=== PATIENT | male | born 1980 | race Caucasian/White ===

== ENCOUNTER 2022-12-04 11:42 | Outpatient (OUT) | payer BC, SELFPAY ==
[2022-12-04 11:59] LABS: Basophils Absolute Auto 0.1 10^3/uL (0.0-0.1); Eosinophils Absolute Auto 0.2 10^3/uL (0.0-0.7); Eosinophils Percent Auto 3.7 % (0.9-7.0); Hematocrit 40.4 % (42.0-54.0); Hemoglobin 13.6 g/dL (14.0-18.0); Immature Granulocytes Abs Auto 0.02 10^3/uL (0.00-0.03); Immature Granulocytes Pct Auto 0.4 % (0.0-0.5); Lymphocytes Absolute Auto 2.5 10^3/uL (1.2-3.8); Lymphocytes Percent Auto 48.6 % (20.5-60.0); Mean Corpuscular HGB Conc 33.7 g/dL (29.9-35.2); Mean Corpuscular Hemoglobin 29.8 pg (25.9-34.0); Mean Corpuscular Volume 88.4 fL (80.0-94.0); Mean Platelet Volume 9.6 fL (9.5-13.5); Monocytes Absolute Auto 0.4 10^3/uL (0.3-0.8); Monocytes Percent Auto 7.5 % (1.7-12.0); Neutrophils Percent Auto 38.8 % (43.0-75.0); Platelet Count 261 10^3/uL (150-450); Red Blood Count 4.57 10^6/uL (4.70-6.10); Red Cell Distribution Width 11.9 % (11.0-15.0); White Blood Count 5.2 10^3/uL (4.0-11.0)
[2022-12-04 12:55] LABS: Alanine Aminotransferase 29 U/L (16-63); Albumin Globulin Ratio 1.2; Alkaline Phosphatase 46 U/L (46-116); Anion Gap 13.1; Aspartate Amino Transferase 12 U/L (15-37); BUN Creatinine Ratio 14.6; Bilirubin Total 0.2 mg/dL (0.2-1.0); Calcium 9.3 mg/dL (8.5-10.1); Carbon Dioxide 28.1 mmol/L (21.0-32.0); Chloride 103 mmol/L (98-107); Chol HDL Ratio 3.8; Cholesterol 168 mg/dL (<=200); Estimated GFR (African America >60 (>=60); Estimated GFR (Non-African Ame >60 (>=60); Globulin 3.3 g/dL; Glucose 90 mg/dL (74-106); HDL Cholesterol 44 mg/dL (40-60); LDL Cholesterol Calculated 99.2 mg/dL; Potassium 4.2 mmol/L (3.5-5.1); Sodium 140 mmol/L (136-145); Total Protein 7.3 g/dL (6.4-8.2); Triglycerides 124 mg/dL (<=150); VLDL CHOLESTEROL 24.8 mg/dL
== END 2022-12-04 11:43 | disposition home or self-care (01) ==
PROVIDERS: PCP Family Medicine; Visit Provider Family Medicine
DX: Z00.00 Encounter for general adult medical examination without abnormal findings (principal); E78.1 Pure hyperglyceridemia
CPT/HCPCS: 36415; 80053; 80061; 85025

== ENCOUNTER 2023-02-22 12:08 | Outpatient (OUT) | payer BC, SELFPAY ==
[2023-02-22 12:28] LABS: Basophils Percent Auto 0.7 % (0.2-2.0); Eosinophils Absolute Auto 0.1 10^3/uL (0.0-0.7); Eosinophils Percent Auto 2.7 % (0.9-7.0); Hematocrit 41.9 % (42.0-54.0); Hemoglobin 14.2 g/dL (14.0-18.0); Immature Granulocytes Abs Auto 0.01 10^3/uL (0.00-0.03); Immature Granulocytes Pct Auto 0.2 % (0.0-0.5); Lymphocytes Absolute Auto 1.9 10^3/uL (1.2-3.8); Lymphocytes Percent Auto 42.3 % (20.5-60.0); Mean Corpuscular HGB Conc 33.9 g/dL (29.9-35.2); Mean Corpuscular Hemoglobin 29.8 pg (25.9-34.0); Mean Platelet Volume 9.7 fL (9.5-13.5); Monocytes Absolute Auto 0.3 10^3/uL (0.3-0.8); Monocytes Percent Auto 6.6 % (1.7-12.0); Neutrophils Absolute Auto 2.2 10^3/uL (1.4-6.5); Neutrophils Percent Auto 47.5 % (43.0-75.0); Platelet Count 254 10^3/uL (150-450); Red Blood Count 4.76 10^6/uL (4.70-6.10); Red Cell Distribution Width 11.9 % (11.0-15.0); White Blood Count 4.5 10^3/uL (4.0-11.0)
== END 2023-02-22 12:09 | disposition home or self-care (01) ==
LOC: LAB 12:08
PROVIDERS: PCP Family Medicine; Visit Provider Family Medicine
DX: D64.9 Anemia, unspecified (principal)
CPT/HCPCS: 36415; 82607; 82728; 82746; 85025

== ENCOUNTER 2023-11-30 09:24 | Outpatient (OUT) | payer BC, SELFPAY ==
--- OUTSIDE RECORDS SUMMARY | 2023-11-30 09:25 | XMS_ITS | CCD ---
Author Organization [facility] Care Team Providers Care Crabber Name Role Phone DR KAILEE WHITE Primary Care Unavailable LOGAN JOSEPH Admitting Unavailable LOGAN JOSEPH Attending Unavailable LOGAN JOSEPH Consulting Unavailable GEOVANNI, DR KAILEE Lopez Primary Care Unavailable GEOVANNI, DR KAILEE Lopez Admitting Unavailable GEOVANNI, DR KAILEE Lopez Attending Unavailable GEOVANNI, DR KAILEE Lopez Consulting Unavailable GEOVANNI, DR KAILEE Lopez Primary Care Unavailable WHITE, DR KAILEE Lopez Admitting Unavailable WHITE, DR KAILEE Lopez Attending Unavailable GEOVANNI, DR KAILEE Lopez Consulting Unavailable Kailee White Unavailable Gregg Estevez Attending Unavailab Gregg Javed Admitting Unavailab le NON STAFF Primary Care Unavailable Allergies Allergy Classification Reported Allergen(s) Allergy Type Date of Onset Reaction(s) Facility (3 sources) patient allergy list reviewed by nurse or physicia Propensity to adverse reactions Comment:Done [facility] Other (3 sources) Allergies Reconciled Propensity to adverse reactions Unknown [facility] Other Medications Current Medications Medication Drug Class(es) Dates Sig (Normalized) Sig (Original) benztropine mesylate 1 mg oral tablet (3 sources) Anticholinergic, Antihistamine Start: 11-28-2021 benztropine 1mg benztropine( 1mg oral two times daily ) Active -Hx Entry oral two times daily for 0 *Reorder from [facility] for eRx and Interaction Alerts* Nov, Active fenofibrate 145 mg oral tablet (3 sources) Peroxisome Proliferator Receptor alpha Agonist take 1 tablet by mouth once daily Fenofibrate 145 MG TAKE 1 TABLET BY MOUTH EVERY DAY for 90 Active FLUoxetine 20 mg oral tablet (3 sources) Serotonin Reuptake Inhibitor Start: 11-28-2021 take 20 mg by mouth once daily Fluoxetine 20mg FLUoxetine( 20mg oral daily ) Active -Hx Entry oral daily for 0 *Reorder from [facility] for eRx and Interaction Alerts* Nov, Active haloperidol 5 mg oral tablet (3 sources) Typical Antipsychotic Start: 11-28-2021 Haloperidol 5mg haloperidoL( 5mg oral two times daily ) Active -Hx Entry oral two times daily for 0 *Pick strength-form from [facility] for eRX* Nov, Active ondansetron 4 mg disintegrating oral tablet (3 sources) Serotonin-3 Receptor Antagonist Start: 11-29-2022 take 1 tablet by mouth three times daily as needed Ondansetron 4 MG 1 tablet on the tongue and allow to dissolve Orally tid prn for 5 Nov, Active QUEtiapine 100 mg oral tablet (3 sources) Atypical Antipsychotic Start: 11-28-2021 take 100 mg by mouth at bedtime quetiapine 100mg QUEtiapine( 100mg oral at bedtime ) Active -Hx Entry oral at bedtime for 0 *Reorder from [facility] for eRx and Interaction Alerts* Nov, Active SUMAtriptan 50 mg oral tablet (3 sources) Serotonin-1b and Serotonin-1d Receptor Agonist take 1 tablet by mouth every two hours as needed, then take 1 tablet by mouth twice daily as needed SUMAtriptan Succinate 50 MG 1 tablet at least 2 hours between doses as needed Orally Twice a day prn for 30 days Active Problems Problem Classification Problem Date Documented Date Episodic/Chronic Deficiency and other anemia (5 sources) Anemia, unspecified; Translations: [ANEMIA UNSPECIFIED] Onset: 02-14-2021 Episodic Deficiency and other anemia (3 sources) Anemia; Translations: [Anemia, unspecified] Episodic Disorders of lipid metabolism (4 sources) Pure hyperglyceridemia; Translations: [Hypertriglyceridemia ] Onset: 11-20-2020 Chronic Headache; including migraine (4 sources) Migraine with aura; Translations: [Migraine with aura, not intractable, without status migrainosus] Chronic Other aftercare (4 sources) Other salvage determiner (current) drug therapy; Translations: [OTH HOSPITAL HOUSEKEEPER CURRENT DRUG THERAPY] Onset: 09-22-2021 Episodic Schizophrenia and other psychotic disorders (1 source) Schizoaffective disorder, unspecified; Translations: [SCHIZOAFFECTIVE DISORDER UNS] Onset: 09-26-2021 Chronic Results Test Name Value Interpretation Reference Range Facil ity GLUCOSE BLOODon 09-22-2021 Glucose [Mass/Vol] 93 mg/dL Normal 74-106 [facility] Comment on above: Performed By: #### G FLORENCIO, LIPID #### [facility] [address] [address] [address] Opal Gaona LIPID PROFILEon 09-22-2021 CHOL-HDL RATIO NORM SEE BELOW Normal [facility] Comment on above: Result Comment: 3.3 - 4.4 LOW RISK 4.4 - 7.1 AVERAGE RISK 7.1 - 11.0 MODERATE RISK >11.0 HIGH RISK Performed By: #### G FLORENCIO, LIPID #### [facility] [address] [address] [address] Opal Gaona Cholesterol [Mass/Vol] 179 mg/dL Normal <=200 [facility] Comment on above: Performed By: #### G FLORENCIO, LIPID #### [facility] [address] [address] [address] Opal Gaona Cholesterol in HDL [Mass/Vol] 41 mg/dL Normal 40-60 [facility] Comment on above: Performed By: #### G FLORENCIO, LIPID #### [facility] [address] [address] [address] Opal Gaona Cholesterol in LDL [Mass/Vol] 110.2 mg/dL Normal [facility] Comment on above: Performed By: #### G FLORENCIO, LIPID #### [facility] [address] [address] [address] Opal Gaona Cholesterol.total/C holesterol in HDL [Mass ratio] 4.4 {ratio} Normal [facility] Comment on above: Performed By: #### G FLORENCIO, LIPID #### [facility] [address] [address] [address] Opal Gaona HDL NORMAL > or = 60 mg/dl - LO W CARDIOVASCULAR RISK <40 mg/dl - HIGH CARDIOVASCULAR RISK Normal [facility] Comment on above: Performed By: #### G FLORENCIO, LIPID #### [facility] [address] [address] [address] Opal Gaona LDL CALC NORMAL SEE BELOW Normal [facility] Comment on above: Result Comment: <100 mg/dl OPTIMAL 100 - 129 mg/dl NEAR OR ABOVE OPTIMAL 130 - 159 mg/dl BORDERLINE HIGH 160 - 189 mg/dl HIGH >190 mg/dl VERY HIGH Performed By: #### G FLORENCIO, LIPID #### [facility] [address] [place] [address] Dr. Opal Gaona Triglyceride [Mass/Vol] 139 mg/dL Normal <=150 [facility] Comment on above: Performed By: #### G FLORENCIO, LIPID #### [facility] [address] [place] [address] Dr. Opal Gaona VLDL CALC 27.8 mg/dL Normal [facility] Comment on above: Performed By: #### G FLORENCIO, LIPID #### [facility] [address] [place] [address] Dr. Opal Gaona CBC AUTO DIFFon 02-14-2021 BASO # 0.1 103/ul Normal 0.0-0.1 [facility] Comment on above: Performed By: #### C BC #### [facility] [address] [place] [address] Dr. Opal Gaona Basophils/100 WBC (Bld) 0.9 % Normal 0.2-2.0 [facility] Comment on above: Performed By: #### C BC #### [facility] [address] [place] [address] Dr. Opal Gaona EO # 0.3 103/ul Normal 0.0-0.7 [facility] Comment on above: Performed By: #### C BC #### [facility] [address] [place] [address] Dr. Opal Gaona Eosinophils/100 WBC (Bld) 4.4 % Normal 0.9-7.0 [facility] Comment on above: Performed By: #### C BC #### [facility] [address] [place] [address] Dr. Opal Gaona Erythrocyte distribution width (RBC) [Ratio] 11.9 % Normal 11.0-15.0 [facility] Comment on above: Performed By: #### C BC #### [facility] [address] [place] [address] Dr. Opal Gaona Hematocrit (Bld) [Volume fraction] 41.6 % Critically low 42.0-54.0 [facility] Comment on above: Performed By: #### C BC #### [facility] [address] [place] [address] Dr. Opal Gaona Hemoglobin (Bld) [Mass/Vol] 14.0 g/dL Normal 14.0-18.0 [facility] Comment on above: Performed By: #### C BC #### [facility] [address] [place] [address] Dr. Opal Gaona IG # 0.01 10e3/ul Normal 0.00-0.03 [facility] Comment on above: Performed By: #### C BC #### [facility] [address] [place] [address] Dr. Opal Gaona IG % 0.2 % Normal 0.0-0.5 [facility] Comment on above: Performed By: #### C BC #### [facility] [address] [place] [address] Dr. Opal Gaona LYMPH # 2.8 103/ul Normal 1.2-3.8 [facility] Comment on above: Performed By: #### C BC #### [facility] [address] [place] [address] Dr. Opal Gaona Lymphocytes/100 WBC (Bld) 48.6 % Normal 20.5-60.0 [facility] Comment on above: Performed By: #### C BC #### [facility] [address] [place] [address] Dr. Opal Gaona MANUAL DIFF REQ NO Normal [facility] Comment on above: Performed By: #### C BC #### [facility] [address] [place] [address] Dr. Opal Gaona MCH (RBC) [Entitic mass] 29.7 pg Normal 25.9-34.0 [facility] Comment on above: Performed By: #### C BC #### [facility] [address] [place] [address] Dr. Opal Gaona MCHC (RBC) [Mass/Vol] 33.7 g/dL Normal 29.9-35.2 [facility] Comment on above: Performed By: #### C BC #### [facility] [address] [place] [address] Dr. Opal Gaona MCV (RBC) [Entitic vol] 88.1 fL Normal 80.0-94.0 [facility] Comment on above: Performed By: #### C BC #### [facility] [address] [place] [address] Dr. Opal Gaona MONO # 0.5 103/ul Normal 0.3-0.8 [facility] Comment on above: Performed By: #### C BC #### [facility] [address] [place] [address] Dr. Opal Gaona Monocytes/100 WBC (Bld) 8.7 % Normal 1.7-12.0 [facility] Comment on above: Performed By: #### C BC #### [facility] [address] [place] [address] Dr. Opal Gaona NEUT # 2.1 103/ul Normal 1.4-6.5 [facility] Comment on above: Performed By: #### C BC #### [facility] [address] [place] [address] Dr. Opal Gaona Neutrophils/100 WBC (Bld) 37.2 % Critically low 43.0-75.0 [facility] Comment on above: Performed By: #### C BC #### [facility] [address] [place] [address] Dr. Opal Gaona Platelet mean volume (Bld) [Entitic vol] 9.6 fL Normal 9.5-13.5 [facility] Comment on above: Performed By: #### C BC #### [facility] [address] [place] [address] Dr. Opal Gaona PLT 266 103/ul Normal 150-450 [facility] Comment on above: Performed By: #### C BC #### [facility] [address] [place] [address] Dr. Opal Gaona RBC 4.72 106/ul Normal 4.70-6.10 [facility] Comment on above: Performed By: #### C BC #### [facility] [address] [place] [address] Dr. Opal Gaona WBC 5.7 103/ul Normal 4.0-11.0 [facility] Comment on above: Performed By: #### C BC #### [facility] [address] [place] [address] Dr. Opal Gaona FERRITINon 02-14-2021 Ferritin [Mass/Vol] 224.0 ng/mL Normal 17.9-464.0 [facility] Comment on above: Performed By: #### V ITB12, FERR #### [facility] [address] [place] [address] Dr. Opal Gaona VITAMIN B12on 02-14-2021 Cobalamin (Vitamin B12) [Mass/Vol] 463.0 pg/mL Normal 239.0-931.0 [facility] Comment on above: Performed By: #### V ITB12, FERR #### [facility] [address] [place] [address] Dr. Opal Gaona CBC AUTO DIFFon 11-11-2020 BASO # 0.0 103/ul Normal 0.0-0.1 [facility] Comment on above: Performed By: #### C BC #### [facility] [address] [place] [address] Sheri Kristie Basophils/100 WBC (Bld) 0.9 % Normal 0.2-2.0 [facility] Comment on above: Performed By: #### C BC #### [facility] [address] [place] [address] Sheri Kristie EO # 0.3 103/ul Normal 0.0-0.7 [facility] Comment on above: Performed By: #### C BC #### [facility] [address] [place] [address] Sheri Kristie Eosinophils/100 WBC (Bld) 6.0 % Normal 0.9-7.0 [facility] Comment on above: Performed By: #### C BC #### [facility] [address] [place] [address] Sheri Kristie Erythrocyte distribution width (RBC) [Ratio] 12.3 % Normal 11.0-15.0 [facility] Comment on above: Performed By: #### C BC #### [facility] [address] [place] [address] Sheri Kristie Hematocrit (Bld) [Volume fraction] 40.6 % Critically low 42.0-54.0 [facility] Comment on above: Performed By: #### C BC #### [facility] [address] [place] [address] Sheri Kristie Hemoglobin (Bld) [Mass/Vol] 13.8 g/dL Critically low 14.0-18.0 [facility] Comment on above: Performed By: #### C BC #### [facility] [address] [place] [address] Sheri Kristie IG # 0.01 10e3/ul Normal 0.00-0.03 [facility] Comment on above: Performed By: #### C BC #### [facility] [address] [place] [address] Sheri Kristie IG % 0.2 % Normal 0.0-0.5 [facility] Comment on above: Performed By: #### C BC #### [facility] [address] [place] [address] Sheri Kristie LYMPH # 2.1 103/ul Normal 1.2-3.8 [facility] Comment on above: Performed By: #### C BC #### [facility] [address] [place] [address] Sheri Kristie Lymphocytes/100 WBC (Bld) 45.4 % Normal 20.5-60.0 [facility] Comment on above: Performed By: #### C BC #### [facility] [address] [place] [address] Sheri Kristie MANUAL DIFF REQ NO Normal [facility] Comment on above: Performed By: #### C BC #### [facility] [address] [place] [address] Sheri Kristie MCH (RBC) [Entitic mass] 29.7 pg Normal 25.9-34.0 [facility] Comment on above: Performed By: #### C BC #### [facility] [address] [place] [address] Sheri Flowers MCHC (RBC) [Mass/Vol] 34.0 g/dL Normal 29.9-35.2 [facility] Comment on above: Performed By: #### C BC #### [facility] [address] [place] [address] Sheridheeraj Flowers MCV (RBC) [Entitic vol] 87.5 fL Normal 80.0-94.0 [facility] Comment on above: Performed By: #### C BC #### [facility] [address] [place] [address] Sheri Flowers MONO # 0.4 103/ul Normal 0.3-0.8 [facility] Comment on above: Performed By: #### C BC #### [facility] [address] [place] [address] Sheri Flowers Monocytes/100 WBC (Bld) 7.7 % Normal 1.7-12.0 [facility] Comment on above: Performed By: #### C BC #### [facility] [address] [place] [address] Sheri Joeen NEUT # 1.9 103/ul Normal 1.4-6.5 [facility] Comment on above: Performed By: #### C BC #### [facility] [address] [place] [address] Sheri Flowers Neutrophils/100 WBC (Bld) 39.8 % Critically low 43.0-75.0 [facility] Comment on above: Performed By: #### C BC #### [facility] [address] [place], [place] [address] Sheri Kristie Platelet mean volume (Bld) [Entitic vol] 9.6 fL Normal 9.5-13.5 [facility] Comment on above: Performed By: #### C BC #### [facility] [address] [place], [place] [address] Sheri Kristie PLT 224 103/ul Normal 150-450 [facility] Comment on above: Performed By: #### C BC #### [facility] [address], [place] [address] Sheri Kristie RBC 4.64 106/ul Critically low 4.70-6.10 [facility] Comment on above: Performed By: #### C BC #### [facility] [address] [id number] Sheri Kristie WBC 4.7 103/ul Normal 4.0-11.0 [facility] Comment on above: Performed By: #### C BC #### [facility] [address] [id number] Sheri Kristie LIPID PROFILEon 11-11-2020 CHOL-HDL RATIO NORM SEE BELOW Normal [facility] Comment on above: Result Comment: 3.3 - 4.4 LOW RISK 4.4 - 7.1 AVERAGE RISK 7.1 - 11.0 MODERATE RISK >11.0 HIGH RISK Performed By: #### L IPID, CMP #### [facility] [address] [place], [place] [address] Sheri Kristie Cholesterol [Mass/Vol] 168 mg/dL Normal <=200 [facility] Comment on above: Performed By: #### L IPID, CMP #### [facility] [address] [place] [address] Sheri Kristie Cholesterol in HDL [Mass/Vol] 40 mg/dL Normal [facility] Comment on above: Performed By: #### L IPID, CMP #### [facility] [address] [address] Sheri Kristie Cholesterol in LDL [Mass/Vol] 104.0 mg/dL Normal [facility] Comment on above: Performed By: #### L IPID, CMP #### [facility] [address] [id number] Sheri Kristie Cholesterol.total/C holesterol in HDL [Mass ratio] 4.2 {ratio} Normal [facility] Comment on above: Performed By: #### L IPID, CMP #### [facility] [address] [id number] Sheri Kristie HDL NORMAL > or = 60 mg/dl - LO W CARDIOVASCULAR RISK <40 mg/dl - HIGH CARDIOVASCULAR RISK Normal [facility] Comment on above: Performed By: #### L IPID, CMP #### [facility] [address] [id number] Sheri Kristie LDL CALC NORMAL SEE BELOW Normal [facility] Comment on above: Result Comment: <100 mg/dl OPTIMAL 100 - 129 mg/dl NEAR OR ABOVE OPTIMAL 130 - 159 mg/dl BORDERLINE HIGH 160 - 189 mg/dl HIGH >190 mg/dl VERY HIGH Performed By: #### L IPID, CMP #### [facility] [address] [address] Sheri Kristie Triglyceride [Mass/Vol] 122 mg/dL Normal <=150 [facility] Comment on above: Performed By: #### L IPID, CMP #### [facility] [address] [place] [address] Sheri Kristie VLDL CALC 24.4 mg/dL Normal [facility] Comment on above: Performed By: #### L IPID, CMP #### [facility] [address] [id number] Sheridheeraj Joeen PROF 14(COMP METB)on 021 Albumin [Mass/Vol] 4.0 g/dL Normal 3.5-5.0 [facility] Comment on above: Performed By: #### L IPID, CMP #### [facility] [address] [place], [place] [address] Sheri Kristie Albumin/Globulin [Mass ratio] 1.2 {ratio} Normal [facility] Comment on above: Performed By: #### L IPID, CMP #### [facility] [address] [id number] Sheri Kristie ALP [Catalytic activity/Vol] 54 U/L Normal 38-126 [facility] Comment on above: Performed By: #### L IPID, CMP #### [facility] [address] [address] Sheri Kristie ALT [Catalytic activity/Vol] 32 U/L Normal 21-72 [facility] Comment on above: Performed By: #### L IPID, CMP #### [facility] [address] [phone] Sheri Kristie Anion gap [Moles/Vol] 9.0 mmol/L Normal [facility] Comment on above: Performed By: #### L IPID, CMP #### [facility] [address] [id number] Sheri Kristie AST [Catalytic activity/Vol] 18 U/L Normal 17-59 [facility] Comment on above: Performed By: #### L IPID, CMP #### [facility] [address] [id number] Sheri Kristie Bilirubin [Mass/Vol] 0.3 mg/dL Normal 0.2-1.3 [facility] Comment on above: Performed By: #### L IPID, CMP #### [facility] [address] [address] Sheri Kristie Calcium [Mass/Vol] 8.9 mg/dL Normal 8.4-10.2 [facility] Comment on above: Performed By: #### L IPID, CMP #### [facility] [address] [address] Sheri Kristie Chloride [Moles/Vol] 100 mmol/L Normal 98-107 [facility] Comment on above: Performed By: #### L IPID, CMP #### [facility] [address] [address] Sheri Kristie CO2 [Moles/Vol] 27.1 mmol/L Normal 22.0-30.0 [facility] Comment on above: Performed By: #### L IPID, CMP #### [facility] [address] [id number] Sheri Kristie Creatinine [Mass/Vol] 0.98 mg/dL Normal 0.66-1.25 [facility] Comment on above: Performed By: #### L IPID, CMP #### [facility] [address] [id number] Sheri Kristie EGFR-AF FRENCH >60 Normal >=60 [facility] Comment on above: Performed By: #### L IPID, CMP #### [facility] [address], [place] [address] Sheri Kristie EGFR-NON AF FRENCH >60 Normal >=60 [facility] Comment on above: Performed By: #### L IPID, CMP #### [facility] [address], [place] [address] Sheri Kristie Globulin (S) [Mass/Vol] 3.4 g/dL Normal [facility] Comment on above: Performed By: #### L IPID, CMP #### [facility] [address], [place] [address] Sheri Kristie Glucose [Mass/Vol] 90 mg/dL Normal 74-106 [facility] Comment on above: Performed By: #### L IPID, CMP #### [facility] [address] [id number] Sheri Kristie Potassium [Moles/Vol] 4.1 mmol/L Normal 3.4-5.0 [facility] Comment on above: Performed By: #### L IPID, CMP #### [facility] [address], [place] [address] Sheri Kristie Protein [Mass/Vol] 7.4 g/dL Normal 6.1-8.2 [facility] Comment on above: Performed By: #### L IPID, CMP #### [facility] [address] [id number] Sheri Kristie Sodium [Moles/Vol] 135 mmol/L Critically low 137-145 [facility] Comment on above: Performed By: #### L IPID, CMP #### [facility] [address], [place] [address] Sheri Kristie Urea nitrogen [Mass/Vol] 10.0 mg/dL Normal 9.0-20.0 [facility] Comment on above: Performed By: #### L IPID, CMP #### [facility] [facility] [address], [place] [address] Sheri Kristie Urea nitrogen/Creatinine [Mass ratio] 10.2 mg/mg Normal [facility] Comment on above: Performed By: #### L IPID, CMP #### [facility] [address], [place] [address] Sheri Flowers Encounters Encounter Date Encounter Type Care Provider Facility Start: 11-05-2023 ambulatory Gregg Brown acility:[facility] Start: 03-13-2023 End: 03-13-2023 ambulatory Kailee White Other [facility] Start: 03-13-2023 Telephone encounter [facility] Start: 02-19-2023 End: 02-19-2023 ambulatory Kailee White Other [facility] Start: 02-19-2023 Telephone encounter [facility] Start: 12-19-2022 End: 12-19-2022 ambulatory Kailee White Other [facility] Other Start: 12-19-2022 Telephone encounter [facility] Start: 09-22-2021 End: 09-23-[address] KAILEE WHITE Facility:[facility] Start: 02-14-2021 End: 02-15-[address] KAILEE WHITE Facility:[facility] Start: 11-20-2020 Encounter for genera l adult medical examination without abnormal findings DR KAILEE WHITE [facility] Start: 11-11-2020 End: 11-12-[address] KAILEE WHITE Facility:[facility] Start: 11-11-2020 End: 11-12-2020 Encounter for general adult medical examination without abnormal findings DR KAILEE WHITE Facility:[facility] Immunizations Immunization Date Immunization Notes Care Provider Fa cility 08-17-2019 tetanus and diphther ia toxoids, adsorbed, preservative free, for adult use (5 Lf of tetanus toxoid and 2 Lf of diphtheria toxoid) Kailee White Other [facility] Other Payers Date Payer Category Payer Self-pay 1981 Unknown [id number] [id number] [id number] 1980 Unknown [id number] [id number] [id number] 1981 Unknown [id number] [id number] [id number] 1959 Unknown [id number] Medicare [id number] 2.1 [id number] Social History Date Type Detail Facility Unknown if ever smoked [facility] Other Sex Assigned At Sex Assigned At Bir [facility] Other Evaluation note 03-13-2023 Note Date & Type Note Facility 03-13-2023 Evaluation note Encounter Date Diagnosis Assessment Notes Mar, Migraine with aura and without status migrainosus, not intractable (ICD-10 - G43.109) [facility] Other Evaluation note 02-19-2023 Note Date & Type Note Facility 02-19-2023 Evaluation note Encounter Date Diagnosis Assessment Notes Feb, Mild anemia (ICD-10 - D64.9) [facility] Other Evaluation note Note Date & Type Note Facility Evaluation note No Information Revegy Other History general Narrative - Reported Note Date & Type Note Facility History general Narrative - Reported Type Medical History Hypertriglyceridemia Medical History Anemia Surgical History Problem Title : past surgical history reviewed, Problem Description : past surgical history reviewed, Problem Comment : reviewed - no changes required, Problem Status : Active, Surgical History Problem Title : surg ical procedures, hx of, Problem Description : surgical procedures, hx of, Problem Comment : none, Problem Status : Active, [facility] Other Summary Purpose Family History No Family History Records FoundNo Family History Records Found Advance Directives No Advanced Directives Records FoundNo Advanced Directives Records Found Additional Source Comments (unrecognized sect ion and content) No Status Records FoundNo Status Records Found INFORMATION SOURCE (unrecogn ized section and content) DATE CREATED AUTHOR 09/28/2021 [facility] DATE CREATED AUTHOR AUTHOR'S LAKSHMI GLEASON 11/07/2023 [facility] REASON FOR VISIT (unrecogniz ed section and content) labsmessagerefills FOR RECORDS PERTAINING TO PATIENTS WHO ARE OR HAVE BEEN ENROLLED IN A CHEMICAL DEPENDENCY/SUBSTANCEABUSE PROGRAM, SOME INFORMATION MAY BE OMITTED. This clinical summary was aggregated from multiple sources. Caution should be exercised in using it in the provision of clinical care. This summary normalizes information from multiple sources, and as a consequence, information in this document may materially change the coding, format and clinical context of patient data. In addition, data may be omitted in some cases. CLINICAL DECISIONS SHOULD BE BASED ON THE PRIMARY CLINICAL RECORDS. [facility] [employer] [facility]. provides no warranty or guarantee of the accuracy or completeness of information in this document.
[2023-11-30 10:10] LABS: Alanine Aminotransferase 29 U/L (16-63); Albumin Globulin Ratio 1.3; Albumin Level 3.8 g/dL (3.4-5.0); Alkaline Phosphatase 46 U/L (46-116); Anion Gap 11.7; Aspartate Amino Transferase 16 U/L (15-37); BUN Creatinine Ratio 10.2; Bilirubin Total 0.4 mg/dL (0.2-1.0); Calcium 9.1 mg/dL (8.5-10.1); Carbon Dioxide 27.4 mmol/L (21.0-32.0); Chloride 103 mmol/L (98-107); Chol HDL Ratio 3.3; Cholesterol 162 mg/dL (<=200); Estimated GFR (African America >60 (>=60); Estimated GFR (Non-African Ame >60 (>=60); Glucose 94 mg/dL (74-106); HDL Cholesterol 49 mg/dL (40-60); Potassium 4.1 mmol/L (3.5-5.1); Sodium 138 mmol/L (136-145); Total Protein 6.8 g/dL (6.4-8.2); Triglycerides 105 mg/dL (<=150)
== END 2023-11-30 09:25 | disposition home or self-care (01) ==
LOC: LAB 09:24
PROVIDERS: PCP Family Medicine; Visit Provider Family Medicine
DX: E78.5 Hyperlipidemia, unspecified (principal)
CPT/HCPCS: 36415; 80053; 80061

== ENCOUNTER 2024-12-04 09:00 | Outpatient (OUT) | payer BC, SELFPAY ==
--- OUTSIDE RECORDS SUMMARY | 2024-12-04 09:03 | XMS_ITS | CCD ---
Author Organization [facility] Inform ion [facility] Care Team Providers Care Fence Builder Name Role Phone DR KAILEE WHITE Primary Care Unavailable LOGAN JOSEPH Admitting Unavailable OPAL, LOGAN Attending Unavailable LOGAN JOSEPH Consulting Unavailable GEOVANNI, DR KAILEE Lopez Primary Care Unavailable WHITE, DR KAILEE Lopez Admitting Unavailable WHITE, DR KAILEE Lopez Attending Unavailable WHITE, DR KAILEE Lopez Consulting Unavailable WHITE, DR KAILEE Lopez Primary Care Unavailable WHITE, DR KAILEE Lopez Admitting Unavailable WHITE, DR KAILEE Lopez Attending Unavailable WHITE, DR KAILEE Lopez Consulting Unavailable Kailee White Unavailable NON STAFF Primary Care Provider MD Gregg Melendez Attending Provider Gregg Estevez Attending Unavailab Gregg Javed Admitting Unavailab henry NON STAFF Primary Care Unavailable Allergies Allergy Classification Reported Allergen(s) Allergy Type Date of Onset Reaction(s) Facility (3 sources) patient allergy list reviewed by nurse or physicia Propensity to adverse reactions 8 Comment:Done [facility] Other (3 sources) Allergies Reconciled Propensity to adverse reactions Unknown [facility] Other Medications Current Medications Medication Drug Class(es) Dates Sig (Normalized) Sig (Original) benztropine mesylate 1 mg oral tablet (4 sources) Anticholinergic, Antihistamine Start: 12-03-2023 Benztropine Active MG PO December 03, 2023 12:00am FreeTextSig: benztropine( 1mg oral two times daily ) Active -Hx Entry oral two times daily; Note: Source Status: Taking*Reorder from [facility] for eRx and Interaction Alerts*; Provider: Geovanni Dugan ( ) Start: 11-28-2021 benztropine 1m g benztropine( 1mg oral two times daily ) Active -Hx Entry oral two times daily for 0 *Reorder from [facility] for eRx and Interaction Alerts* Nov, Active Fenofibrate Nanocrystallized (1 source) Start: 10-16-2023 take 1 tablet by mouth once daily Fenofibrate Nanocrystallized Active 0 .ROUTE .COMPLEX October 16, 2023 9:56pm TAKE 1 TABLET BY MOUTH EVERY DAY FLUoxetine 20 mg oral capsule (4 sources) Serotonin Reuptake Inhibitor Start: 12-03-2023 take 20 mg by mouth once daily Fluoxetine Active 20 MG PO Daily December 03, 2023 12:00am Start: 11-28-2021 take 20 mg by mouth once daily Fluoxetine 20mg FLUoxetine( 20mg oral daily ) Active -Hx Entry oral daily for 0 *Reorder from [facility] for eRx and Interaction Alerts* Nov, Active haloperidol 5 mg oral tablet (4 sources) Typical Antipsychotic Start: 12-03-2023 take 5 mg by mouth once daily Haloperidol Active 5 MG PO Daily December 03, 2023 12:00am Start: 11-28-2021 Haloperidol 5m g haloperidoL( 5mg oral two times daily ) Active -Hx Entry oral two times daily for 0 *Pick strength-form from [facility] for eRX* Nov, Active ondansetron 4 mg disintegrating oral tablet (6 sources) Serotonin-3 Receptor Antagonist Start: 11-19-2023 take 1 tablet by mouth three times daily Ondansetron Active 0 .ROUTE .COMPLEX November 19, 2023 8:37am DISSOLVE 1 TABLET IN MOUTH 3 TIMES A DAY Start: 05-06-2023 End: 11-19-2023 take 4 mg by mouth three times daily Ondansetron Discontinued 4 MG PO Three times daily May 06, 2023 5:39pm November 19, 2023 8:37am Start: 11-29-2022 take 1 tablet by chapo th three times daily as needed Ondansetron 4 MG 1 tablet on the tongue and allow to dissolve Orally tid prn for 5 Nov, Active QUEtiapine 100 mg oral tablet (4 sources) Atypical Antipsychotic Start: 12-03-2023 take 100 mg by mouth once daily Quetiapine Active 100 MG PO Daily December 03, 2023 12:00am Start: 11-28-2021 take 100 mg by mouth at bedtim e quetiapine 100mg QUEtiapine( 100mg oral at bedtime ) Active -Hx Entry oral at bedtime for 0 *Reorder from [facility] for eRx and Interaction Alerts* Nov, Active SUMAtriptan 50 mg oral tablet (7 sources) Serotonin-1b and Serotonin-1d Receptor Agonist Start: 11-07-2023 End: 12-03-2023 take 1 tablet by mouth twice daily as needed Sumatriptan Succinate Active 0 .ROUTE .COMPLEX December 03, 2023 9:44am TAKE 1 TABLET BY MOUTH TWICE A DAY NEEDED *AT LEAST 2 HOURS BETWEEN DOSES* Start: 05-06-2023 End: 11-07-2023 Sumatriptan Succinate Discon tinued 50 MG PO EVERY 2-4 HOURS May 06, 2023 5:39pm November 07, 2023 8:11am take 1 tablet by chapo th every two hours as needed, then take 1 tablet by mouth twice daily as needed SUMAtriptan Succinate 50 MG 1 tablet at least 2 hours between doses as needed Orally Twice a day prn for 30 days Active Completed/Discontinued Medications Medication Drug Class(es) Dates Sig (Normalized) Sig (Original) fenofibrate 145 mg oral tablet (4 sources) Peroxisome Proliferator Receptor alpha Agonist Start: 10-16-2023 End: 10-16-2023 take 145 mg by mouth once daily Fenofibrate Nanocrystallized Discontinued 145 MG PO Daily October 16, 2023 12:00am October 16, 2023 9:56pm take 1 tablet by mouth once elisha y Fenofibrate 145 MG TAKE 1 TABLET BY MOUTH EVERY DAY for 90 Active Problems Problem Classification Problem Date Documented Date Episodic/Chronic Deficiency and other anemia (5 sources) Anemia, unspecified; Translations: [ANEMIA UNSPECIFIED] Onset: 02-14-2021 Episodic Deficiency and other anemia (3 sources) Anemia; Translations: [Anemia, unspecified] Episodic Disorders of lipid metabolism (6 sources) Pure hyperglyceridemia; Translations: [Hypertriglyceridemia ] Onset: 11-20-2020 12-03-2023 Chronic Headache; including migraine (6 sources) Migraine with aura; Translations: [Migraine with aura, not intractable, without status migrainosus] Chronic Other aftercare (4 sources) Other terminal superintendent (current) drug therapy; Translations: [OTH [facility] CURRENT DRUG THERAPY] Onset: 09-22-2021 Episodic Schizophrenia and other psychotic disorders (1 source) Schizoaffective disorder, unspecified; Translations: [SCHIZOAFFECTIVE DISORDER UNS] Onset: 09-26-2021 Chronic Results Test Name Value Interpretation Reference Range Facil ity Cholesterol in LDL Calc [Mas s/Vol]on 11-30-2023 Cholesterol in LDL [Mass/Vol] 92.0 mg/dL [facility] Comment on above: <100 mg/dl [id number] 0-129 mg/dl NEAR OR ABOVE [id number] mg/dl BORDERLINE [id number] mg/dl HIGH>190 mg/dl VERY HIGH Cholesterol in VLDL Calc [Ma ss/Vol]on 11-30-2023 Cholesterol in VLDL [Mass/Vol] 21.0 mg/dL [facility] Estimated glomerular filtrat ion rate (GFR) non- Americanon 11-30-2023 GFR/1.73 sq M.predicted among non-blacks MDRD (S/P/Bld) [Vol rate/Area] mL/min/{1.73_m2} >=60 [facility] Globulin Calc (S) [Mass/Vol] on 11-30-2023 Globulin (S) [Mass/Vol] 3.0 g/dL [facility] Laboratory - Chemistry and C hemistry - challengeon 11-30-2023 Albumin [Mass/Vol] 3.8 g/dL 3.4-5.0 [facility] ALP [Catalytic activity/Vol] 46 U/L 46-116 [facility] ALT [Catalytic activity/Vol] 29 U/L 16-63 [facility] AST [Catalytic activity/Vol] 16 U/L 15-37 [facility] Bilirubin [Mass/Vol] 0.4 mg/dL 0.2-1.0 [facility] Calcium [Mass/Vol] 9.1 mg/dL 8.5-10.1 [facility] Chloride [Moles/Vol] 103 mmol/L 98-107 [facility] Cholesterol [Mass/Vol] 162 mg/dL <=200 [facility] Cholesterol in HDL [Mass/Vol] 49 mg/dL 40-60 [facility] Comment on above: > or =60 mg/dl - LOW CARDIOVASCULAR RISK<40 mg/dl - HIGH CARDIOVASCULAR RISK CO2 [Moles/Vol] 27.4 mmol/L 21.0-32.0 [facility] Creatinine [Mass/Vol] 0.98 mg/dL 0.70-1.30 [facility] GFR/1.73 sq M.predicted MDRD (S/P/Bld) [Vol rate/Area] mL/min/{1.73_m2} >=60 [facility] Glucose [Mass/Vol] 94 mg/dL 74-106 [facility] Potassium [Moles/Vol] 4.1 mmol/L 3.5-5.1 [facility] Protein [Mass/Vol] 6.8 g/dL 6.4-8.2 [facility] Sodium [Moles/Vol] 138 mmol/L 136-145 [facility] Triglyceride [Mass/Vol] 105 mg/dL <=150 [facility] Urea nitrogen [Mass/Vol] 10.0 mg/dL 7.0-18.0 [facility] Urea nitrogen/Creatinine [Mass ratio] 10.2 mg/mg [facility] Serum or plasma albumin/glob ulin mass ratioon 11-30-2023 Albumin/Globulin [Mass ratio] 1.3 {ratio} [facility] Serum or plasma anion gap de terminationon 11-30-2023 Anion gap [Moles/Vol] 11.7 mmol/L [facility] Serum or plasma total choles terol/high density lipoprotein (HDL) cholesterol mass josseline 11-30-2023 Cholesterol.total/Cho lesterol in HDL [Mass ratio] 3.3 {ratio} [facility] Comment on above: 3.3 - 4.4 LOW RISK4. 4 - 7.1 AVERAGE RISK7.1 - 11.0 MODERATE RISK>11.0 HIGH RISK GLUCOSE BLOODon 09-22-2021 Glucose [Mass/Vol] 93 mg/dL Normal 74-106 [facility] Comment on above: Performed By: #### G FLORENCIO, LIPID #### [facility] [address] [place], [place] [address] Dr. Opal Gaona LIPID PROFILEon 09-22-2021 CHOL-HDL RATIO NORM SEE BELOW Normal [facility] Comment on above: Result Comment: 3.3 - 4.4 LOW RISK 4.4 - 7.1 AVERAGE RISK 7.1 - 11.0 MODERATE RISK >11.0 HIGH RISK Performed By: #### G FLORENCIO, LIPID #### [facility] [address] [place] [address] [address] Opal Gaona Cholesterol [Mass/Vol] 179 mg/dL Normal <=200 [facility] Comment on above: Performed By: #### G FLORENCIO, LIPID #### [facility] [address] [place] [address] [address] Opal Gaona Cholesterol in HDL [Mass/Vol] 41 mg/dL Normal 40-60 [facility] Comment on above: Performed By: #### G FLORENCIO, LIPID #### [facility] [address] [place] [address] [address] Opal Gaona Cholesterol in LDL [Mass/Vol] 110.2 mg/dL Normal [facility] Comment on above: Performed By: #### G FLORENCIO, LIPID #### [facility] [address] [place] [address] [address] Opal Gaona Cholesterol.total/Cho lesterol in HDL [Mass ratio] 4.4 {ratio} Normal [facility] Comment on above: Performed By: #### G FLORENCIO, LIPID #### [facility] [address] [place] [address] [address] Opal Gaona HDL NORMAL > or = 60 mg/dl - LOW CARDIOVASCULAR RISK <40 mg/dl - HIGH CARDIOVASCULAR RISK Normal [facility] Comment on above: Performed By: #### G FLORENCIO, LIPID #### [facility] [address] [address] [address] Opal Gaona LDL CALC NORMAL SEE BELOW Normal [facility] Comment on above: Result Comment: <100 mg/dl OPTIMAL 100 - 129 mg/dl NEAR OR ABOVE OPTIMAL 130 - 159 mg/dl BORDERLINE HIGH 160 - 189 mg/dl HIGH >190 mg/dl VERY HIGH Performed By: #### G FLORENCIO, LIPID #### [facility] [address] [place] [address] Dr. Opal Gaona Triglyceride [Mass/Vol] 139 mg/dL Normal <=150 [facility] Comment on above: Performed By: #### G FLORENCIO, LIPID #### [facility] [address] [place] [address] Dr. Opal Gaona VLDL CALC 27.8 mg/dL Normal [facility] Comment on above: Performed By: #### G FLORENCIO, LIPID #### [facility] [address] [place] [address] Dr. Opal Gaona CBC AUTO DIFFon 02-14-2021 BASO # 0.1 103/ul Normal 0.0-0.1 [facility] Comment on above: Performed By: #### C BC #### [facility] [address] [place] [address] Dr. Opal Gaona Basophils/100 WBC (Bld) 0.9 % Normal 0.2-2.0 [facility] Comment on above: Performed By: #### C BC #### [facility] [address] [place] [address] Dr. Opal Gaona EO # 0.3 103/ul Normal 0.0-0.7 [facility] Comment on above: Performed By: #### C BC #### [facility] [address] [place] [address] Dr. Opal Gaona Eosinophils/100 WBC (Bld) 4.4 % Normal 0.9-7.0 [facility] Comment on above: Performed By: #### C BC #### [facility] [address] [place] [address] Dr. Opal Gaona Erythrocyte distribution width (RBC) [Ratio] 11.9 % Normal 11.0-15.0 [facility] Comment on above: Performed By: #### C BC #### [facility] [address] [place] [address] Dr. Opal Gaona Hematocrit (Bld) [Volume fraction] 41.6 % Critically low 42.0-54.0 [facility] Comment on above: Performed By: #### C BC #### [facility] [address] [place] [address] Dr. Opal Gaona Hemoglobin (Bld) [Mass/Vol] 14.0 g/dL Normal 14.0-18.0 [facility] Comment on above: Performed By: #### C BC #### [facility] [address] [place] [address] Dr. Opal Gaona IG # 0.01 10e3/ul Normal 0.00-0.03 [facility] Comment on above: Performed By: #### C BC #### [facility] [address] [place] [address] Dr. Opal Gaona IG % 0.2 % Normal 0.0-0.5 [facility] Comment on above: Performed By: #### C BC #### [facility] [address] [place] [address] Dr. Opal Gaona LYMPH # 2.8 103/ul Normal 1.2-3.8 [facility] Comment on above: Performed By: #### C BC #### [facility] [address] [place] [address] Dr. Opal Gaona Lymphocytes/100 WBC (Bld) 48.6 % Normal 20.5-60.0 [facility] Comment on above: Performed By: #### C BC #### [facility] [address] [place] [address] Dr. Opal Gaona MANUAL DIFF REQ NO Normal [facility] Comment on above: Performed By: #### C BC #### [facility] [address] [place] [address] Dr. Opal Gaona MCH (RBC) [Entitic mass] 29.7 pg Normal 25.9-34.0 [facility] Comment on above: Performed By: #### C BC #### [facility] [address] [place] [address] Dr. Opal Gaona MCHC (RBC) [Mass/Vol] 33.7 g/dL Normal 29.9-35.2 [facility] Comment on above: Performed By: #### C BC #### [facility] [address] [place] [address] Dr. Opal Gaona MCV (RBC) [Entitic vol] 88.1 fL Normal 80.0-94.0 [facility] Comment on above: Performed By: #### C BC #### [facility] [address] [place] [address] Dr. Opal Gaona MONO # 0.5 103/ul Normal 0.3-0.8 [facility] Comment on above: Performed By: #### C BC #### [facility] [address] [place] [address] Dr. Opal Gaona Monocytes/100 WBC (Bld) 8.7 % Normal 1.7-12.0 [facility] Comment on above: Performed By: #### C BC #### [facility] [address] [place] [address] Dr. Opal Gaona NEUT # 2.1 103/ul Normal 1.4-6.5 [facility] Comment on above: Performed By: #### C BC #### [facility] [address] [place] [address] Dr. Opal Gaona Neutrophils/100 WBC (Bld) 37.2 % Critically low 43.0-75.0 [facility] Comment on above: Performed By: #### C BC #### [facility] [address] [place] [address] Dr. Opal Gaona Platelet mean volume (Bld) [Entitic vol] 9.6 fL Normal 9.5-13.5 [facility] Comment on above: Performed By: #### C BC #### [facility] [address] [place] [address] Dr. Opal Gaona PLT 266 103/ul Normal 150-450 [facility] Comment on above: Performed By: #### C BC #### [facility] [address] [place] [address] Dr. Opal Gaona RBC 4.72 106/ul Normal 4.70-6.10 [facility] Comment on above: Performed By: #### C BC #### [facility] [address] [place] [address] Dr. Opal Gaona WBC 5.7 103/ul Normal 4.0-11.0 [facility] Comment on above: Performed By: #### C BC #### [facility] [address] [place] [address] Dr. Opal Gaona FERRITINon 02-14-2021 Ferritin [Mass/Vol] 224.0 ng/mL Normal 17.9-464.0 [facility] Comment on above: Performed By: #### V ITB12, FERR #### [facility] [address] [place] [address] Dr. Opal Gaona VITAMIN B12on 02-14-2021 Cobalamin (Vitamin B12) [Mass/Vol] 463.0 pg/mL Normal 239.0-931.0 [facility] Comment on above: Performed By: #### V ITB12, FERR #### [facility] [address] [place] [address] Dr. Opal Gaona CBC AUTO DIFFon 11-11-2020 BASO # 0.0 103/ul Normal 0.0-0.1 [facility] Comment on above: Performed By: #### C BC #### [facility] [address] [place], [place] [id number] Sheri Kristie Basophils/100 WBC (Bld) 0.9 % Normal 0.2-2.0 [facility] Comment on above: Performed By: #### C BC #### [facility] [address] [place], [place] [id number] Sheri Kristie EO # 0.3 103/ul Normal 0.0-0.7 [facility] Comment on above: Performed By: #### C BC #### [facility] [address] [place] [address] Sheri Kristie Eosinophils/100 WBC (Bld) 6.0 % Normal 0.9-7.0 [facility] Comment on above: Performed By: #### C BC #### [facility] [address] [place] [address] Sheri Kristie Erythrocyte distribution width (RBC) [Ratio] 12.3 % Normal 11.0-15.0 [facility] Comment on above: Performed By: #### C BC #### [facility] [address] [place] [address] Sheri Kristie Hematocrit (Bld) [Volume fraction] 40.6 % Critically low 42.0-54.0 [facility] Comment on above: Performed By: #### C BC #### [facility] [address] [place] [address] Sheri Kristie Hemoglobin (Bld) [Mass/Vol] 13.8 g/dL Critically low 14.0-18.0 [facility] Comment on above: Performed By: #### C BC #### [facility] [address] [place] [address] Sheri Kristie IG # 0.01 10e3/ul Normal 0.00-0.03 [facility] Comment on above: Performed By: #### C BC #### [facility] [address] [place] [address] Sheri Kristie IG % 0.2 % Normal 0.0-0.5 [facility] Comment on above: Performed By: #### C BC #### [facility] [address] [place] [address] Sheri Kristie LYMPH # 2.1 103/ul Normal 1.2-3.8 [facility] Comment on above: Performed By: #### C BC #### [facility] [address] [place] [address] Sheri Flowers Lymphocytes/100 WBC (Bld) 45.4 % Normal 20.5-60.0 [facility] Comment on above: Performed By: #### C BC #### [facility] [address] [place] [address] Sheri Kristie MANUAL DIFF REQ NO Normal [facility] Comment on above: Performed By: #### C BC #### [facility] [address] [place], [place] [id number] Sheri Kristie MCH (RBC) [Entitic mass] 29.7 pg Normal 25.9-34.0 [facility] Comment on above: Performed By: #### C BC #### [facility] [address] [place], [place] [id number] Sheri Flowers MCHC (RBC) [Mass/Vol] 34.0 g/dL Normal 29.9-35.2 [facility] Comment on above: Performed By: #### C BC #### [facility] [address] [place], [place] [id number] Sheri Flowers MCV (RBC) [Entitic vol] 87.5 fL Normal 80.0-94.0 [facility] Comment on above: Performed By: #### C BC #### [facility] [address] [place], [place] [id number] Hseridheeraj Joeen MONO # 0.4 103/ul Normal 0.3-0.8 [facility] Comment on above: Performed By: #### C BC #### [facility] [address] [place], [place] [phone] Sheri Flowers Monocytes/100 WBC (Bld) 7.7 % Normal 1.7-12.0 [facility] Comment on above: Performed By: #### C BC #### [facility] [address] [place] [address] Sheri Joeen NEUT # 1.9 103/ul Normal 1.4-6.5 [facility] Comment on above: Performed By: #### C BC #### [facility] [address] [place], [place] [phone] Sheri Flowers Neutrophils/100 WBC (Bld) 39.8 % Critically low 43.0-75.0 [facility] Comment on above: Performed By: #### C BC #### [facility] [address] [place], [place] [phone] Sheridheeraj Flowers Platelet mean volume (Bld) [Entitic vol] 9.6 fL Normal 9.5-13.5 [facility] Comment on above: Performed By: #### C BC #### [facility] [address] [place], [place] [phone] Sheri Kristie PLT 224 103/ul Normal 150-450 [facility] Comment on above: Performed By: #### C BC #### [facility] [address] [place], [place] [phone] Sheri Kristie RBC 4.64 106/ul Critically low 4.70-6.10 [facility] Comment on above: Performed By: #### C BC #### [facility] [address] [place], [place] [address] Sheri Kristie WBC 4.7 103/ul Normal 4.0-11.0 [facility] Comment on above: Performed By: #### C BC #### [facility] [address] [place], [place] [address] Sheri Kristie LIPID PROFILEon 11-11-2020 CHOL-HDL RATIO NORM SEE BELOW Normal [facility] Comment on above: Result Comment: 3.3 - 4.4 LOW RISK 4.4 - 7.1 AVERAGE RISK 7.1 - 11.0 MODERATE RISK >11.0 HIGH RISK Performed By: #### L IPID, CMP #### [facility] [address] [place], [place] [address] Sheri Kristie Cholesterol [Mass/Vol] 168 mg/dL Normal <=200 [facility] Comment on above: Performed By: #### L IPID, CMP #### [facility] [address] [place], [place] [address] Sheri Kristie Cholesterol in HDL [Mass/Vol] 40 mg/dL Normal [facility] Comment on above: Performed By: #### L IPID, CMP #### [facility] [address] [place], [place] [address] Sheri Kristie Cholesterol in LDL [Mass/Vol] 104.0 mg/dL Normal [facility] Comment on above: Performed By: #### L IPID, CMP #### [facility] [address] [id number] Sheri Kristie Cholesterol.total/Cho lesterol in HDL [Mass ratio] 4.2 {ratio} Normal [facility] Comment on above: Performed By: #### L IPID, CMP #### [facility] [address] [place] [id number] Sheri Kristie HDL NORMAL > or = 60 mg/dl - LOW CARDIOVASCULAR RISK <40 mg/dl - HIGH CARDIOVASCULAR RISK Normal [facility] Comment on above: Performed By: #### L IPID, CMP #### [facility] [address] [place], [place] [address] Sheri Kristie LDL CALC NORMAL SEE BELOW Normal [facility] Comment on above: Result Comment: <100 mg/dl OPTIMAL 100 - 129 mg/dl NEAR OR ABOVE OPTIMAL 130 - 159 mg/dl BORDERLINE HIGH 160 - 189 mg/dl HIGH >190 mg/dl VERY HIGH Performed By: #### L IPID, CMP #### [facility] [address] [place] [id number] Sheri Kristie Triglyceride [Mass/Vol] 122 mg/dL Normal <=150 [facility] Comment on above: Performed By: #### L IPID, CMP #### [facility] [address] [id number] Sheri Kristie VLDL CALC 24.4 mg/dL Normal [facility] Comment on above: Performed By: #### L IPID, CMP #### [facility] [address] [place], [place] [id number] Sheri Flowers PROF 14(COMP METB)on 021 Albumin [Mass/Vol] 4.0 g/dL Normal 3.5-5.0 [facility] Comment on above: Performed By: #### L IPID, CMP #### [facility] [address] [place], [place] [id number] Sheri Kristie Albumin/Globulin [Mass ratio] 1.2 {ratio} Normal [facility] Comment on above: Performed By: #### L IPID, CMP #### [facility] [address] [place], [place] [id number] Sheri Kristie ALP [Catalytic activity/Vol] 54 U/L Normal 38-126 [facility] Comment on above: Performed By: #### L IPID, CMP #### [facility] [address] [place], [place] [id number] Sheri Kristie ALT [Catalytic activity/Vol] 32 U/L Normal 21-72 [facility] Comment on above: Performed By: #### L IPID, CMP #### [facility] [address] [place] [id number] Sheri Kristie Anion gap [Moles/Vol] 9.0 mmol/L Normal [facility] Comment on above: Performed By: #### L IPID, CMP #### [facility] [address] [place] [address] Sheri Kristie AST [Catalytic activity/Vol] 18 U/L Normal 17-59 [facility] Comment on above: Performed By: #### L IPID, CMP #### [facility] [address] [place], [place] [id number] Sheri Kristie Bilirubin [Mass/Vol] 0.3 mg/dL Normal 0.2-1.3 [facility] Comment on above: Performed By: #### L IPID, CMP #### [facility] [address] [place] [address] Sheri Kristie Calcium [Mass/Vol] 8.9 mg/dL Normal 8.4-10.2 [facility] Comment on above: Performed By: #### L IPID, CMP #### [facility] [address] [place] [address] Sheri Kristie Chloride [Moles/Vol] 100 mmol/L Normal 98-107 [facility] Comment on above: Performed By: #### L IPID, CMP #### [facility] [address] [place] [address] Sheri Kristie CO2 [Moles/Vol] 27.1 mmol/L Normal 22.0-30.0 [facility] Comment on above: Performed By: #### L IPID, CMP #### [facility] [address] [place] [address] Sheri Kristie Creatinine [Mass/Vol] 0.98 mg/dL Normal 0.66-1.25 [facility] Comment on above: Performed By: #### L IPID, CMP #### [facility] [address] [place], [place] [id number] Sheri Kristie EGFR-AF BRAZILIAN >60 Normal >=60 [facility] Comment on above: Performed By: #### L IPID, CMP #### [facility] [address] [place], [place] [id number] Sheri Kristie EGFR-NON AF BRAZILIAN >60 Normal >=60 [facility] Comment on above: Performed By: #### L IPID, CMP #### [facility] [address] [place], [place] [address] Sheri Kristie Globulin (S) [Mass/Vol] 3.4 g/dL Normal [facility] Comment on above: Performed By: #### L IPID, CMP #### [facility] [address] [id number] Sheri Kristie Glucose [Mass/Vol] 90 mg/dL Normal 74-106 [facility] Comment on above: Performed By: #### L IPID, CMP #### [facility] [address] [id number] Sheri Kristie Potassium [Moles/Vol] 4.1 mmol/L Normal 3.4-5.0 [facility] Comment on above: Performed By: #### L IPID, CMP #### [facility] [address] [place], [place] [id number] Sheri Kristie Protein [Mass/Vol] 7.4 g/dL Normal 6.1-8.2 [facility] Comment on above: Performed By: #### L IPID, CMP #### [facility] [address] [place], [place] [id number] Sheri Kristie Sodium [Moles/Vol] 135 mmol/L Critically low 137-145 [facility] Comment on above: Performed By: #### L IPID, CMP #### [facility] [address] [place], [place] [id number] Sheri Kristie Urea nitrogen [Mass/Vol] 10.0 mg/dL Normal 9.0-20.0 [facility] Comment on above: Performed By: #### L IPID, CMP #### [facility] [address] [id number] Sheri Kristie Urea nitrogen/Creatinine [Mass ratio] 10.2 mg/mg Normal [facility] Comment on above: Performed By: #### L IPID, CMP #### [facility] [address] [id number] Sheri Kristie Vital Signs Date Time Vital Sign Value Performing Clinician Faci lity 12-03-2023 09:30-0400 Body height 179.07 cm [facility] 12-03-2023 09:30-0400 Body mass index (BMI) [Ratio] 33.6 kg/m2 [facility] 12-03-2023 09:30-0400 Body weight 107.95 kg [facility] 12-03-2023 09:30-0400 Diastolic blood pressure 81 mm[Hg] [facility] 12-03-2023 09:30-0400 Heart rate 82 /min [facility] 12-03-2023 09:30-0400 Systolic blood pressure 130 mm[Hg] [facility] Encounters Encounter Date Encounter Type Care Provider Facility Start: 07-21-2024 ambulatory Gregg Brown acility:[facility] Start: 12-03-2023 End: 12-03-2023 ambulatory NON STAFF [facility] Work Phone: Start: 12-03-2023 End: 12-03-2023 Encounter for general adult medical examination without abnormal findings [facility] Start: 12-03-2023 End: 12-03-2023 Patient encounter procedure [facility] Work Phone: Start: 11-30-2023 Non-patient / Non-visit [facility] Work Phone: Start: 11-05-2023 Registered [facility] Start: 03-13-2023 End: 03-13-2023 ambulatory Kailee White Other [facility] Other Start: 03-13-2023 Telephone encounter Kailee White [facility] Start: 02-19-2023 End: 02-19-2023 ambulatory Kailee White Other [facility] Other Start: 02-19-2023 Telephone encounter Kailee White [facility] Start: 12-19-2022 End: 12-19-2022 ambulatory Kailee White Other [facility] Other Start: 12-19-2022 Telephone encounter Kailee White [facility] Start: 09-22-2021 End: 09-23-[address] KAILEE WHITE Facility:[facility] Start: 02-14-2021 End: 02-15-[address] KAILEE WHITE Facility:[facility] Start: 11-20-2020 Encounter for genera l adult medical examination without abnormal findings DR KAILEE WHITE [facility] Start: 11-11-2020 End: 11-12-[address] KAILEE WHITE Facility:[facility] Start: 11-11-2020 End: 11-12-2020 Encounter for general adult medical examination without abnormal findings DR KAILEE WHITE Facility:[facility] Immunizations Immunization Date Immunization Notes Care Provider Fa cility 08-17-2019 tetanus and diphther ia toxoids, adsorbed, preservative free, for adult use (5 Lf of tetanus toxoid and 2 Lf of diphtheria toxoid) Kailee White Other [facility] Payers Date Payer Category Payer Self-pay 1980 Unknown [id number] [id number] [id number] 1980 Unknown [id number] 1980 Unknown [id number] [id number] 1959 Unknown [id number] Medicare [id number] 2.1 [id number] Unknown [place] XX [id number] Social History Date Type Detail Facility Unknown if ever smoked [facility] Other Sex Assigned At Sex Assigned At Bir th [facility] Other Start: 12-03-2023 Tobacco smoking status NHIS Ex-smoker (finding) [facility] Start: 1980 Sex Assigned At Male F [facility] Evaluation note 03-13-2023 Note Date & Type Note Facility 03-13-2023 Evaluation note Encounter Date Diagnosis Assessment Notes Mar, Migraine with aura and without status migrainosus, not intractable (ICD-10 - G43.109) [facility] Other Evaluation note 02-19-2023 Note Date & Type Note Facility 02-19-2023 Evaluation note Encounter Date Diagnosis Assessment Notes Feb, Mild anemia (ICD-10 - D64.9) [facility] Other Evaluation note Note Date & Type Note Facility Evaluation note No Information [facility] Other Evaluation note Note Date & Type Note Facility Evaluation note Diagnosis Onset Date Hyperlipidemia acute Migraine aura occurring with and without headache acute Encounter for wellness examination noneactive [facility] Work Phone: History general Narrative - Reported Note Date [...] Comment : none, Problem Status : Active, [facility] Other Summary Purpose Family History No Family History Records Found Relationship Condition Age at Onset Recorded Date/T ko father Unknown Malignant neoplasm Unknown Advance Directives No Advanced Directives Records Found Advance Directive Response Recorded Date/ Time Advance Directives No November 9:20am Chief Complaint and Reason for Visit Chief Complaint [facility]/Discuss [facility] Reason for Visit Hyperlipidemia Migraine aura occurring with and without headache Encounter for wellness examination Additional Source Comments (unrecognized sect ion and content) No Status Records FoundNo Status Records Found INFORMATION SOURCE (unrecogn ized section and content) DATE CREATED AUTHOR 09/28/2021 Jenise garcia DATE CREATED AUTHOR 'S ORGANIZ ATION 08/31/2024 [facility] REASON FOR VISIT (unrecogniz ed section and content) labsmessagerefills Care Teams (unrecognized sec tion and content) Team Status: Active Member Role Status Dates NON STAFF Primary Care Provider Active Team Status: Active Member Role Status Dates NON STAFF Primary Care Provider Active Start: November 05, 2023 Gregg Estevez MD Attending Provider Active Start: November 05, 2023 Team Status: Active Member Role Status Dates NON STAFF Primary Care Provider Active Start: November 30, 2023 Kailee White MD Attending Provider Active St art: November 30, 2023 Team Status: Inactive Member Role Status Dates NON STAFF Primary Care Provider Active Start: December 03, 2023 End: December 03, 2023 Kailee White MD Attending Provider Active St art: December 03, 2023 End: December 03, 2023 Goals (unrecognized section and content) Goals may be documented in a n alternate section FOR RECORDS PERTAINING TO PATIENTS WHO ARE [...] BE BASED ON THE PRIMARY CLINICAL RECORDS. [facility] [employer] provides no warranty or guarantee of the accuracy or completeness of information in this document.
[2024-12-04 09:36] LABS: Hematocrit 40.0 % (42.0-54.0); Hemoglobin 13.6 g/dL (14.0-18.0); Immature Granulocytes Abs Auto 0.01 10^3/uL (0.00-0.03); Immature Granulocytes Pct Auto 0.2 % (0.0-0.5); Lymphocytes Absolute Auto 2.3 10^3/uL (1.2-3.8); Mean Corpuscular HGB Conc 34.0 g/dL (29.9-35.2); Mean Corpuscular Hemoglobin 29.8 pg (25.9-34.0); Mean Corpuscular Volume 87.5 fL (80.0-94.0); Platelet Count 260 10^3/uL (150-450); Red Blood Count 4.57 10^6/uL (4.70-6.10); White Blood Count 5.0 10^3/uL (4.0-11.0)
[2024-12-04 09:54] LABS: Alanine Aminotransferase 32 U/L (16-63); Albumin Globulin Ratio 1.1; Albumin Level 3.9 g/dL (3.4-5.0); Alkaline Phosphatase 42 U/L (46-116); Anion Gap 10.5; Aspartate Amino Transferase 17 U/L (15-37); Blood Urea Nitrogen 12.0 mg/dL (7.0-18.0); Calcium 8.9 mg/dL (8.5-10.1); Carbon Dioxide 27.7 mmol/L (21.0-32.0); Chloride 105 mmol/L (98-107); Cholesterol 185 mg/dL (<=200); Estimated GFR (African America >60 (>=60 mL/min/1.73m^2); Estimated GFR (Non-African Ame >60 (>=60 mL/min/1.73m^2); Globulin 3.5 g/dL; Glucose 96 mg/dL (74-106); HDL Cholesterol 46 mg/dL (40-60); Potassium 4.2 mmol/L (3.5-5.1); Sodium 139 mmol/L (136-145); TSH W/ REFLEX FT4 1.638 uIU/mL (0.358-3.740); Total Protein 7.4 g/dL (6.4-8.2); Triglycerides 113 mg/dL (<=150); VLDL CHOLESTEROL 22.6 mg/dL
== END 2024-12-04 09:01 | disposition home or self-care (01) ==
LOC: LAB 09:00
PROVIDERS: PCP Family Medicine; Visit Provider Family Medicine
DX: Z00.00 Encounter for general adult medical examination without abnormal findings (principal); E78.1 Pure hyperglyceridemia
CPT/HCPCS: 36415; 80053; 80061; 84443; 85025

== ENCOUNTER 2025-02-25 13:48 | Outpatient (OUT) | payer BC, SELFPAY ==
[2025-02-25 14:00] LABS: Hematocrit 39.1 % (42.0-54.0); Hemoglobin 13.4 g/dL (14.0-18.0); Immature Granulocytes Abs Auto 0.00 10^3/uL (0.00-0.03); Immature Granulocytes Pct Auto 0.0 % (0.0-0.5); Lymphocytes Absolute Auto 2.4 10^3/uL (1.2-3.8); Mean Corpuscular HGB Conc 34.3 g/dL (29.9-35.2); Mean Corpuscular Hemoglobin 30.2 pg (25.9-34.0); Mean Corpuscular Volume 88.1 fL (80.0-94.0); Platelet Count 236 10^3/uL (150-450); Red Blood Count 4.44 10^6/uL (4.70-6.10); White Blood Count 5.0 10^3/uL (4.0-11.0)
[2025-02-25 14:47] LABS: Ferritin 157.0 ng/mL (26.0-388.0)
== END 2025-02-25 13:49 | disposition home or self-care (01) ==
LOC: LAB 13:48
PROVIDERS: PCP Family Medicine; Visit Provider Family Medicine
DX: D64.9 Anemia, unspecified (principal)
CPT/HCPCS: 36415; 82728; 85025